=== PATIENT | female | born 1970 | race Caucasian/White ===

== ENCOUNTER 2018-11-29 00:40 | Emergency (ER) | payer OTHER, MEDICAID ==
[2018-11-29] MEDS ORDERED: OXYCODONE-ACETAMINOPHEN 5-325 MG TABLET PO ONE (01:08)
--- NOTE | 2018-11-29 01:14 | ER Document Report ---
ED GI/ - General Chief Complaint: Flank Pain Stated Complaint: FLANK PAIN Time Seen by Provider: 11/29/18 00:52 Primary Care Provider: DYLAN CRAIG MD [Primary Care Provider] - Follow up as needed Notes: This is a 48-year-old female patient lives in a long-term due to recent stroke to the emergency department complaining of right flank pain radiating down into the right lower quadrant. Patient states that she has a history of medullary sponge kidney. Had a stroke in May 2018. Had a carotid endarter ectomy with stent placed a few years prior to that she thinks. Does not know her lipid panel. Was seen here a few days ago and continues to have pain in the right flank and right lower quadrant area. Comes and goes. Had a CT performed on the when she was seen in the ER which showed that she had kidney stones. She thinks that she is on antibiotics as well. TRAVEL OUTSIDE OF THE [place] IN LAST 30 DAYS: No - HPI Patient complains to provider of: Abdominal pain, Flank pain Onset: Yesterday Timing/Duration: Gradual, Worse Quality of pain: Stabbing, Throbbing Severity at maximum: Moderate Severity in ED: Moderate Pain Level: 3 Location: RLQ, Right flank - Related Data Allergies/Adverse Reactions: Contrast Dye Allergy (Uncoded 11/26/18 10:52) Past Medical History - General Information source: Patient - Social History Smoking Status: Former Smoker Frequency of alcohol use: None Drug Abuse: None Lives with: Retirement Family History: Reviewed & Not Pertinent - Past Medical History Cardiac Medical History: Reports: Hx Hypercholesterolemia, Hx Hypertension Neurological Medical History: Reports: Hx Cerebrovascular Accident Renal/ Medical History: Reports: Hx Kidney Stones. Denies: Hx Peritoneal Dialysis - Immunizations Immunizations up to date: Yes Review of Systems - Review of Systems Notes: Constitutional: denies: Chills, Diaphoresis, Fever, Malaise, Weakness EENT: denies: Eye discharge, Blurred vision, Tearing, Double vision, Nose congestion, Nose discharge, Throat swelling, Mouth pain Cardiovascular: denies: Palpitations, Heart racing, Orthopnea, Dyspnea, Chest pain Respiratory: denies: Cough, Hurts to breathe, Wheezing, Shortness of breath Gastrointestinal: denies: Diarrhea, Nausea, Vomiting, Black stools, bright red blood in stool. +Abdominal pain, Genitourinary: denies: Burning, Dysuria, Discharge, Frequency, +Flank pain, - Hematuria Musculoskeletal: denies: Joint pain, Joint swelling, Muscle pain, Muscle stiffness, back pain Hematologic/Lymphatic: denies: Anemia, Easy bleeding, Easy bruising, Blood clots Neurological/Psychological: denies: Confusion, Dementia, Depression, Loss of consciousness Skin: No lesions, no masses, no skin breakdown, no abscesses Physical Exam - Vital signs Vitals: Temp Pulse Resp BP Pulse Ox 98.5 F 72 16 155/60 H 94 11/29/18 00:45 11/29/18 00:45 11/29/18 00:45 11/29/18 00:45 11/29/18 00:45 Interpretation: Normal - General General appearance: Appears well, Alert - HEENT Head: Normocephalic, Atraumatic Eyes: Normal Pupils: PERRL - Respiratory Respiratory status: No respiratory distress Chest status: Nontender Breath sounds: Normal Chest palpation: Normal - Cardiovascular Rhythm: Regular Heart sounds: Normal auscultation Murmur: No - Abdominal Inspection: Normal Distension: No distension Bowel sounds: Normal Tenderness: Nontender Organomegaly: No organomegaly - Back Back: Normal, Nontender - Extremities General upper extremity: Normal inspection, Nontender, Normal color, Normal ROM, Normal temperature General lower extremity: Normal inspection, Nontender, Normal color, Normal ROM, Normal temperature, Normal weight bearing. No: Giovanni's sign - Neurological Neuro grossly intact: Yes Cognition: Normal Orientation: AAOx4 [place] Coma Scale Eye Opening: Spontaneous Abby Coma Scale Verbal: Oriented [place] Coma Scale Motor: Obeys Commands Abby Coma Scale Total: 15 Speech: Normal Motor strength normal: LUE, RUE, LLE, RLE Sensory: Normal - Psychological Associated symptoms: Normal affect, Normal mood - Skin Skin Temperature: Warm Skin Moisture: Dry Skin Color: Normal, Other - No signs of shingles. No rash of the right flank or right lower abdomen area. Course - Re-evaluation Re-evalutation: 11/29/18 03:28 Laboratory 11/29/18 11/29/18 11/29/18 01:31 01:31 01:40 WBC 8.6 RBC 3.35 L Hgb 10.4 L Hct 29.8 L MCV 89 MCH 31.1 MCHC 34.8 RDW 14.4 H Plt Count 256 Seg Neutrophils % 60.9 Lymphocytes % 28.9 Monocytes % 7.6 Eosinophils % 2.0 Basophils % 0.6 Absolute Neutrophils 5.2 Absolute Lymphocytes 2.5 Absolute Monocytes 0.6 Absolute Eosinophils 0.2 Absolute Basophils 0.0 PT INR APTT Sodium 140.2 Potassium 4.1 Chloride 101 Carbon Dioxide 33 H Anion Gap 6 BUN 16 Creatinine 0.98 Est GFR ( Amer) > 60 Est GFR (Non-Af Amer) > 60 Glucose 111 H Calcium 9.5 Total Bilirubin 0.3 Direct Bilirubin 0.2 Neonat Total Bilirubin Not Reportable Neonat Direct Bilirubin Not Reportable Neonat Indirect Bili Not Reportable AST 13 L ALT 23 Alkaline Phosphatase 72 Total Protein 6.3 Albumin 3.7 Triglycerides 159 H Cholesterol 142.84 LDL Cholesterol Direct 73 VLDL Cholesterol 31.8 H HDL Cholesterol 52 Urine Color YELLOW Urine Appearance CLEAR Urine pH 6.0 Ur Specific [place] 1.010 Urine Protein NEGATIVE Urine Glucose (UA) NEGATIVE Urine Ketones NEGATIVE Urine Blood NEGATIVE Urine Nitrite NEGATIVE Urine Bilirubin NEGATIVE Urine Urobilinogen NEGATIVE Ur Leukocyte Esterase MODERATE H Urine WBC (Auto) 10 U Hyaline Cast (Auto) 1 Squamous Epi Cells Auto 1 Urine Mucus (Auto) RARE Urine Ascorbic Acid NEGATIVE 11/29/18 01:54 WBC RBC Hgb Hct MCV MCH MCHC RDW Plt Count Seg Neutrophils % Lymphocytes % Monocytes % Eosinophils % Basophils % Absolute Neutrophils Absolute Lymphocytes Absolute Monocytes Absolute Eosinophils Absolute Basophils PT 13.0 INR 0.94 APTT 31.1 Sodium Potassium Chloride Carbon Dioxide Anion Gap BUN Creatinine Est GFR ( Amer) Est GFR (Non-Af Amer) Glucose Calcium Total Bilirubin Direct Bilirubin Neonat Total Bilirubin Neonat Direct Bilirubin Neonat Indirect Bili AST ALT Alkaline Phosphatase Total Protein Albumin Triglycerides Cholesterol LDL Cholesterol Direct VLDL Cholesterol HDL Cholesterol Urine Color Urine Appearance Urine pH Ur Specific [place] Urine Protein Urine Glucose (UA) Urine Ketones Urine Blood Urine Nitrite Urine Bilirubin Urine Urobilinogen Ur Leukocyte Esterase Urine WBC (Auto) U Hyaline Cast (Auto) Squamous Epi Cells Auto Urine Mucus (Auto) Urine Ascorbic Acid Renal Ultrasound 11/29/18 02:07 IMPRESSION: 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 copyright 2010 [employer]- All Rights Reserved Patient is complaining of some mild flank pain. 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 She has no significant blood in her urine. She does have some leukocytes and WBCs and currently is on antibiotics. Does not appear septic. Afebrile. Normal vital signs. Ultrasound not show any hydronephrosis so concerned based on the fact that she does not have any hydro-that this is pain caused from a kidney stone. There is no blood in your urine. At this time based on a review of her previous CT scans there is a large amount of plaque noted in her iliacs and aorta. She has known vascular disease. I am going to do an IV contrasted CT scan. There is a reported allergy to IV dye so treating her with Benadryl at this time. Lactic acid has been ordered. 11/29/18 03:56 11/29/18 04:33 CT scan of the abdomen pelvis with IV contrast does not reveal any significant pathology. As noted on previous CT scan with out contrast there is significant atherosclerotic disease. The left iliac demonstrates stenosis greater than the right so unlikely this is the cause of her pain however patient will need to be seen as an outpatient by a vascular surgeon as she more than likely will require some sort of intervention in her near future. I did add on a homocystine and lipoprotein a as this can oftentimes be a missed treatable because of severe atherosclerotic disease in a patient with a fairly unremarkable lipid panel. Patient realizes that these results will take several weeks to return. I have given her follow-up information for vascular surgery that she will need to schedule. She has outpatient care at this time as she is currently in a rehab facility. I am recommending that she continue with her antibiotics. Will discharge at this time in stable condition. 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 copyright 2010 [employer]- All Rights Reserved Abdomen/Pelvis CT 11/29/18 03:35 IMPRESSION: Hyperdensities within the bilateral renal medulla, likely due to medullary nephrocalcinosis with bilateral nonobstructing stones and bilateral cysts. Large amount of stool within the distended rectum. Severe stenosis of the bilateral common iliac arteries, left greater than right secondary to atherosclerotic disease. TECHNICAL DOCUMENTATION: Quality ID # 436: Final reports with documentation of one or more dose reduction techniques (e.g., Automated exposure control, adjustment of the mA and/or kV according to patient size, use of iterative reconstruction technique) copyright 2011 [employer]- All Rights Reserved - Vital Signs Vital signs: Temp Pulse Resp BP Pulse Ox 98.5 F 72 16 155/60 H 94 11/29/18 00:45 11/29/18 00:45 11/29/18 00:45 11/29/18 00:45 11/29/18 00:45 - Laboratory Result Diagrams: 11/29/18 01:31 11/29/18 01:31 Laboratory results interpreted by me: 11/29/18 11/29/18 11/29/18 01:31 01:31 01:40 RBC 3.35 L Hgb 10.4 L Hct 29.8 L RDW 14.4 H Carbon Dioxide 33 H Glucose 111 H AST 13 L Triglycerides 159 H VLDL Cholesterol 31.8 H Ur Leukocyte Esterase MODERATE H Discharge - Discharge Clinical Impression: Right flank pain, Atherosclerosis of both iliac arteries Condition: Good Disposition: HOME, SELF-CARE Instructions: Flank Pain ([facility]), Toradol Injection ([facility]) Additional Instructions: Please follow-up with your primary care doctor for further evaluation of this pain. Continue with your antibiotics. Of note you have a large amount of plaque in your arteries. There is always a possibility that this could be causing some of your pain. I have given you a follow-up information and referral for vascular surgeon. I am quite certain that you need to be evaluated by vascular surgeon sooner or later. In the event that your pain is getting worse please do not hesitate to return for any worsening symptoms or concerns. Referrals: DYLAN CRAIG MD [Primary Care Provider] - Follow up as needed EVENS PRESSLEY MD [NO LOCAL MD] - Follow up as needed STANLEY ORTIZ MD [ACTIVE STAFF] - Follow up as needed
[2018-11-29] MEDS ORDERED: KETOROLAC TROMETHAMINE INJ/PF 30 MG/1 ML SDV IV ONE (01:32)
[2018-11-29 01:40] LABS: ABSOLUTE EOSINOPHILS # (AUTO) 0.2 10^3/uL (0.0-0.6); ABSOLUTE LYMPHOCYTES (AUTO) 2.5 10^3/uL (0.5-4.7); ABSOLUTE MONOCYTES (AUTO) 0.6 10^3/uL (0.1-1.4); ABSOLUTE NEUT (AUTO) 5.2 10^3/uL (1.7-8.2); BASOPHILS % (AUTO) 0.6 % (0-2); HEMATOCRIT 29.8 % (36.0-47.0); HEMOGLOBIN 10.4 g/dL (12.0-15.5); LYMPHOCYTES % (AUTO) 28.9 % (13-45); MEAN CORPUSCULAR HEMOGLOBIN 31.1 pg (27.0-33.4); MEAN CORPUSCULAR HGB CONC 34.8 g/dL (32.0-36.0); MEAN CORPUSCULAR VOLUME 89 fl (80-97); MONOCYTES % (AUTO) 7.6 % (3-13); PLATELET COUNT 256 10^3/uL (150-450); RED BLOOD COUNT 3.35 10^6/uL (3.72-5.28); RED CELL DISTRIBUTION WIDTH 14.4 % (11.5-14.0); SEGMENTED NEUTROPHILS % (AUTO) 60.9 % (42-78); TOTAL CELLS COUNTED % (AUTO) 100 %; WHITE BLOOD COUNT 8.6 10^3/uL (4.0-10.5)
[2018-11-29 01:55] LABS: ALANINE AMINOTRANSFERASE 23 U/L (9-52); ALBUMIN 3.7 g/dL (3.5-5.0); ALKALINE PHOSPHATASE 72 U/L (38-126); ANION GAP 6 (5-19); ASPARTATE AMINO TRANSFERASE 13 U/L (14-36); BILIRUBIN,DIRECT 0.2 mg/dL (0.0-0.4); BILIRUBIN,TOTAL 0.3 mg/dL (0.2-1.3); BLOOD UREA NITROGEN 16 mg/dL (7-20); CALCIUM 9.5 mg/dL (8.4-10.2); CARBON DIOXIDE 33 mmol/L (22-30); CHLORIDE 101 mmol/L (98-107); CHOLESTEROL 142.84 mg/dL (0-200); GLUCOSE 111 mg/dL (75-110); POTASSIUM 4.1 mmol/L (3.6-5.0); SODIUM 140.2 mmol/L (137-145); TOTAL PROTEIN 6.3 g/dL (6.3-8.2); TRIGLYCERIDES 159 mg/dL (<150)
[2018-11-29 02:06] LABS: INTERNATIONAL RATION (INR) 0.94
[2018-11-29 02:07] LABS: PARTIAL THROMBOPLASTIN TIME 31.1 SEC (23.5-35.8)
[2018-11-29 02:08] LABS: DIRECT LDL 73 mg/dL (<100)
[2018-11-29] MEDS ORDERED: TAMSULOSIN HCL 0.4 MG CAP.SR.24H PO ONE (02:08)
[2018-11-29] MEDS ORDERED: NORMAL SALINE 1000 ML 1,000 ML IV ONE ×2 (02:08→03:35)
[2018-11-29 02:11] LABS: VLDL CHOLESTEROL 31.8 mg/dL (10-31)
[2018-11-29] MEDS ORDERED: KETOROLAC TROMETHAMINE INJ/PF 30 MG/1 ML SDV IM ONE (02:11)
[2018-11-29 02:14] LABS: APPEARANCE,URINE CLEAR; BILIRUBIN,URINE NEGATIVE (NEGATIVE); COLOR,URINE YELLOW; GLUCOSE, URINE NEGATIVE (NEGATIVE); KETONES,URINE NEGATIVE (NEGATIVE); LEUKOCYTE ESTERASE,URINE MODERATE (NEGATIVE); NITRITE,URINE NEGATIVE (NEGATIVE); PROTEIN,URINE NEGATIVE (NEGATIVE); UROBILINOGEN,URINE NEGATIVE mg/dL (<2.0)
--- NOTE | 2018-11-29 03:17 | RADIOLOGY REPORT (SQ) ---
EXAM DESCRIPTION: US RETROPERITONEUM LIMITED COMPLETED DATE/TME: 11/29/2018 02:07 CLINICAL HISTORY: 48 years, Female, worsening right flank pain COMPARISON: CT dated 11/26/2018 TECHNIQUE: Grayscale and color images of the retroperitoneum LIMITATIONS: None. FINDINGS: Both kidneys are normal in size and shape. The bilateral renal medulla appear hyperechoic correlating to the hyperdensity seen on the prior CT. The right kidney measures 9.8 x 5.4 x 5.2 cm. Multiple renal stones are noted. There are also multiple cysts, the largest of which measures 2.2 x 2.1 x 1.6 cm. The left kidney measures 10.7 x 5.0 x 6.0 cm. Multiple stones are noted. There are multiple renal cysts, the largest of which measures 2.0 x 1.9 x 1.8 cm. No hydronephrosis is seen bilaterally. No perirenal fluid collections. The visualized portions of the urinary bladder appear unremarkable. 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 copyright 2010 [employer]- All Rights Reserved
[2018-11-29] MEDS ORDERED: HYDROMORPHONE HCL INJ/PF 2 MG/ML AMPULE IM ONE (03:29)
[2018-11-29] MEDS ORDERED: DIPHENHYDRAMINE HCL 50 MG/ML VIAL IV ONE (03:36)
[2018-11-29] MEDS ORDERED: LACTULOSE SYRUP 20 GM/30 ML UDCUP PO ONE (04:18)
--- NOTE | 2018-11-29 04:29 | RADIOLOGY REPORT (SQ) ---
EXAM DESCRIPTION: CT ABDOMEN PELVIS WITH IV CONTRAST COMPLETED DATE/TME: 11/29/2018 03:35 CLINICAL HISTORY: 48 years, Female, right flank pain COMPARISON: 11/26/2018 TECHNIQUE: Axial CT images of the abdomen and pelvis were obtained after the administration of IV contrast. Images stored on PACS. All CT scanners at this facility use dose modulation, iterative reconstruction, and/or weight based dosing when appropriate to reduce radiation dose to as low as reasonably achievable (ALARA). [facility]: Dose Right [facility]: CareDose [facility]: Dose Right [facility]: Teradose 4D [facility]: [employer] LIMITATIONS: None. FINDINGS: Lung bases are clear. The liver, gallbladder, pancreas, spleen, and adrenal glands are unremarkable. Both kidneys demonstrate hyperdensities within the renal medulla, right greater than left with bilateral nonobstructing stones and bilateral renal cysts. There is no intraperitoneal free air. There is a mild amount of free fluid. There are atherosclerotic calcifications of the abdominal aorta and iliac branches. There is severe stenosis of the bilateral common iliac arteries, left worse than right. There is no lymphadenopathy. The stomach, small bowel appear unremarkable. The appendix is normal. There is a moderate amount of stool within the colon. There is a large amount of stool within the rectum which is distended. The urinary bladder and uterus appear unremarkable. There are no lytic or blastic bone lesions. IMPRESSION: Hyperdensities within the bilateral renal medulla, likely due to medullary nephrocalcinosis with bilateral nonobstructing stones and bilateral cysts. Large amount of stool within the distended rectum. Severe stenosis of the bilateral common iliac arteries, left greater than right secondary to atherosclerotic disease. TECHNICAL DOCUMENTATION: Quality ID # 436: Final reports with documentation of one or more dose reduction techniques (e.g., Automated exposure control, adjustment of the mA and/or kV according to patient size, use of iterative reconstruction technique) copyright 2010 [email or web address]- All Rights Reserved
[2018-11-29 06:13] VITALS: BP 151/79
== END 2018-11-29 05:55 | disposition home or self-care (01) ==
LOC: ER 00:40
DX: I70.208 Unspecified atherosclerosis of native arteries of extremities, other extremity (principal); R10.9 Unspecified abdominal pain; R10.31 Right lower quadrant pain; Z98.890 Other specified postprocedural states; I10 Essential (primary) hypertension; Z87.891 Personal history of nicotine dependence
CPT/HCPCS: 99284; 96372; 96361; 96374; 36415; 83605; 85025; 85610; 85730; 80053; 81001; 83695; 83090; 80061; 76775; 74177; J1200; J1885; J1170; J7030

== ENCOUNTER 2018-12-23 16:11 | Emergency (ER) | payer BC, MEDICAID, OTHER ==
[2018-12-23 18:31] LABS: ABSOLUTE BASOPHILS # (AUTO) 0.1 10^3/uL (0.0-0.2); ABSOLUTE EOSINOPHILS # (AUTO) 0.2 10^3/uL (0.0-0.6); ABSOLUTE LYMPHOCYTES (AUTO) 2.3 10^3/uL (0.5-4.7); ABSOLUTE MONOCYTES (AUTO) 0.6 10^3/uL (0.1-1.4); ABSOLUTE NEUT (AUTO) 4.3 10^3/uL (1.7-8.2); BASOPHILS % (AUTO) 0.7 % (0-2); EOSINOPHILS % (AUTO) 2.2 % (0-6); HEMATOCRIT 33.7 % (36.0-47.0); HEMOGLOBIN 11.3 g/dL (12.0-15.5); LYMPHOCYTES % (AUTO) 30.9 % (13-45); MEAN CORPUSCULAR HEMOGLOBIN 30.5 pg (27.0-33.4); MEAN CORPUSCULAR HGB CONC 33.7 g/dL (32.0-36.0); MEAN CORPUSCULAR VOLUME 90 fl (80-97); MONOCYTES % (AUTO) 8.6 % (3-13); PLATELET COUNT 307 10^3/uL (150-450); RED BLOOD COUNT 3.72 10^6/uL (3.72-5.28); RED CELL DISTRIBUTION WIDTH 13.3 % (11.5-14.0); SEGMENTED NEUTROPHILS % (AUTO) 57.6 % (42-78); TOTAL CELLS COUNTED % (AUTO) 100 %; WHITE BLOOD COUNT 7.4 10^3/uL (4.0-10.5)
[2018-12-23 18:39] LABS: PARTIAL THROMBOPLASTIN TIME 33.1 SEC (23.5-35.8); PROTHROMBIN TIME 13.2 SEC (11.4-15.4)
[2018-12-23 18:55] LABS: ALANINE AMINOTRANSFERASE 19 U/L (9-52); ALBUMIN 3.9 g/dL (3.5-5.0); ALKALINE PHOSPHATASE 78 U/L (38-126); ANION GAP 8 (5-19); ASPARTATE AMINO TRANSFERASE 17 U/L (14-36); BILIRUBIN,DIRECT 0.2 mg/dL (0.0-0.4); BILIRUBIN,TOTAL 0.2 mg/dL (0.2-1.3); BLOOD UREA NITROGEN 28 mg/dL (7-20); CALCIUM 9.7 mg/dL (8.4-10.2); CARBON DIOXIDE 30 mmol/L (22-30); CHLORIDE 102 mmol/L (98-107); GLUCOSE 99 mg/dL (75-110); SODIUM 140.1 mmol/L (137-145); TOTAL PROTEIN 6.5 g/dL (6.3-8.2)
--- NOTE | 2018-12-23 19:18 | ER Document Report ---
ED Head/Face/Scalp Injury - General Chief Complaint: Facial Injury Stated Complaint: HEMORRAGE Time Seen by Provider: 12/23/18 18:26 Primary Care Provider: EVENS LANDEROS MD [Primary Care Provider] - Follow up as needed Mode of Arrival: Medic Information source: Patient TRAVEL OUTSIDE OF THE [place] IN LAST 30 DAYS: No - HPI Patient complains to provider of: Other - abrasion Injury to: Face Occurred: Just prior to arrival Where: Half-Way Timing: Still present Context: Other - Patient said that she describes a blister on her face and she is starting the started bleeding from the open abrasion. Loss consciousness: No loss of consciousness - Related Data Allergies/Adverse Reactions: Contrast Dye Allergy (Uncoded 11/26/18 10:52) Past Medical History - General Information source: Patient - Social History Smoking Status: Unknown if Ever Smoked Family History: Reviewed & Not Pertinent Patient has suicidal ideation: No Patient has homicidal ideation: No - Past Medical History Cardiac Medical History: Reports: Hx Hypercholesterolemia, Hx Hypertension Neurological Medical History: Reports: Hx Cerebrovascular Accident Renal/ Medical History: Reports: Hx Kidney Stones. Denies: Hx Peritoneal Dialysis - Immunizations Immunizations up to date: Yes Review of Systems - Review of Systems Constitutional: No symptoms reported EENT: Other - Left facial bleeding. Cardiovascular: No symptoms reported Respiratory: No symptoms reported Gastrointestinal: No symptoms reported Genitourinary: No symptoms reported Female Genitourinary: No symptoms reported Musculoskeletal: No symptoms reported Skin: No symptoms reported Hematologic/Lymphatic: No symptoms reported Neurological/Psychological: No symptoms reported -: Yes All other systems reviewed and negative Physical Exam - Vital signs Vitals: Pulse Resp BP Pulse Ox 65 15 116/46 L 98 12/23/18 16:26 12/23/18 16:26 12/23/18 16:26 12/23/18 16:26 Interpretation: Normal - General General appearance: Appears well, Alert In distress: None - HEENT Head: Normocephalic, Atraumatic, Other - Left facial abrasion on the left cheek, with bright red blood oozing from the wound. Eyes: Normal Conjunctiva: Normal Cornea: Normal Extraocular movements intact: Yes Eyelashes: Normal Pupils: PERRL Pharynx: Normal - Respiratory Respiratory status: No respiratory distress Chest status: Nontender Breath sounds: Normal Chest palpation: Normal - Cardiovascular Rhythm: Regular Heart sounds: Normal auscultation Murmur: No - Abdominal Inspection: Normal Distension: No distension Bowel sounds: Normal Tenderness: Nontender Organomegaly: No organomegaly - Back Back: Normal, Nontender - Extremities General upper extremity: Normal inspection, Nontender, Normal color, Normal ROM, Normal temperature General lower extremity: Normal inspection, Nontender, Normal color, Normal ROM, Normal temperature, Normal weight bearing. No: Giovanni's sign - Neurological Neuro grossly intact: Yes Cognition: Normal Orientation: AAOx4 Abby Coma Scale Eye Opening: Spontaneous Abby Coma Scale Verbal: Oriented Abby Coma Scale Motor: Obeys Commands Abby Coma Scale Total: 15 Speech: Normal Motor strength normal: LUE, RUE, LLE, RLE Sensory: Normal - Psychological Associated symptoms: Normal affect, Normal mood - Skin Skin Temperature: Warm Skin Moisture: Dry Skin Color: Normal Course - Re-evaluation Re-evalutation: 12/24/18 00:26 Patient was advised to leave the Surgicel on her left cheek for the next 24 hours. She is to return to the emergency room if the bleeding continues. - Vital Signs Vital signs: Temp Pulse Resp BP Pulse Ox 97.7 F 63 18 141/50 H 98 12/23/18 21:04 12/23/18 21:04 12/23/18 21:04 12/23/18 21:04 12/23/18 21:04 - Laboratory Result Diagrams: 12/23/18 18:20 12/23/18 18:20 Laboratory results interpreted by me: 12/23/18 12/23/18 18:20 18:20 Hgb 11.3 L Hct 33.7 L BUN 28 H Est GFR ( Amer) 58 L Est GFR (Non-Af Amer) 48 L - Transfer of Care Notes: 12/23/18 21:41 The surgical list business continuity specialist Dr. Christie was consulted and he came to the ER and evaluated patient. He recommends discharging patient home with Surgicel since the bleeding has stopped. Discharge - Discharge Clinical Impression: Bleeding Abrasion of face Qualifiers: Encounter type: initial encounter Qualified Code(s): S00.81XA - Abrasion of other part of head, initial encounter Condition: Stable Disposition: HOME, SELF-CARE Instructions: Abrasions of the Face ([facility]) Additional Instructions: Please follow-up with your primary doctor on Tuesday. Leave the Surgicel on your face for a day without removing it. Return to the emergency room if your condition worsens. Referrals: EVENS LANDEROS MD [Primary Care Provider] - Follow up as needed
[2018-12-23] MEDS ORDERED: LIDOCAINE 1% INJ-PF (10 MG/ML) 30 ML SDV INJ ONE (21:00)
[2018-12-23] MEDS ORDERED: NORMAL SALINE 500 ML IV ONE (21:42)
[2018-12-24 00:29] VITALS: BP 148/58
== END 2018-12-24 01:56 | disposition home or self-care (01) ==
LOC: ER 16:11
DX: S00.81XA Abrasion of other part of head, initial encounter (principal); R58 Hemorrhage, not elsewhere classified; X58.XXXA Exposure to other specified factors, initial encounter; I10 Essential (primary) hypertension
CPT/HCPCS: 36415; 80053; 85025; 85610; 85730; 99284

== ENCOUNTER 2019-04-09 10:55 | Emergency (ER) | payer MEDICAID, OTHER ==
[2019-04-09] MEDS ORDERED: OXYCODONE HCL IR 5 MG TABLET PO ONE (13:32)
[2019-04-09] MEDS ORDERED: GABAPENTIN 300 MG CAPSULE PO ONE (13:32)
[2019-04-09] MEDS ORDERED: ALPRAZOLAM 0.25 MG TABLET PO ONE (13:33)
--- NOTE | 2019-04-09 13:44 | ER Document Report ---
ED General - General Chief Complaint: Anxiety Stated Complaint: POSSIBLE ANXIETY Time Seen by Provider: 04/09/19 13:12 Primary Care Provider: EVENS LANDEROS MD [Primary Care Provider] - Follow up in 1 week Mode of Arrival: Medic Information source: Patient, Emergency Med Personnel Notes: This 48-year-old female resident of [facility] w ith history of panic disorders, anxiety, PTSD and insomnia muscle spasms presents to the emergency department with report that she had a panic attack this morning. Reports she called and called for help but nobody came. She reports that finally simply came in she said she want to go to the hospital and they told her to undergo the hospital she can call herself. Patient reports she called 911 herself. Patient is requesting her medications she normally takes for her muscle spasms which include gabapentin oxycodone and Xanax. She denies other symptoms such as fever vomiting diarrhea. Denies suicide or homicide ideations. TRAVEL OUTSIDE OF THE [place] IN LAST 30 DAYS: No - HPI Onset: This morning Onset/Duration: Sudden Quality of pain: Achy Associated symptoms: None Exacerbated by: Denies Relieved by: Denies Similar symptoms previously: Yes Recently seen / treated by doctor: No - Related Data Allergies/Adverse Reactions: Contrast Dye Allergy (Uncoded 04/09/19 11:15) Home Medications: Xanax Past Medical History - General Information source: Patient, Emergency Med Personnel, Outside Facility Records - Social History Smoking Status: Never Smoker Family History: Reviewed & Not Pertinent Patient has suicidal ideation: No Patient has homicidal ideation: No - Past Medical History Cardiac Medical History: Reports: Hx Hypercholesterolemia, Hx Hypertension Neurological Medical History: Reports: Hx Cerebrovascular Accident Renal/ Medical History: Reports: Hx Kidney Stones. Denies: Hx Peritoneal Dialysis - Immunizations Immunizations up to date: Yes Review of Systems - Review of Systems Notes: Review HPI for review of systems., All other systems negative Physical Exam - Vital signs Vitals: Temp Pulse Resp BP Pulse Ox 98.8 F 62 16 120/78 93 04/09/19 11:14 04/09/19 11:14 04/09/19 11:14 04/09/19 11:14 04/09/19 11:14 - General General appearance: Appears well, Alert, Anxious In distress: None - HEENT Head: Normocephalic Eyes: Normal Conjunctiva: Normal Neck: Normal. No: Lymphadenopathy - Respiratory Respiratory status: No respiratory distress Chest status: Nontender Breath sounds: Normal Chest palpation: Normal - Cardiovascular Rhythm: Regular Heart sounds: Normal auscultation Murmur: No - Abdominal Inspection: Normal Distension: No distension Tenderness: Nontender - Neurological Neuro grossly intact: Yes Cognition: Normal Orientation: AAOx4 Abby Coma Scale Eye Opening: Spontaneous [place] Coma Scale Verbal: Oriented Abby Coma Scale Motor: Obeys Commands [place] Coma Scale Total: 15 - Psychological Associated symptoms: Normal affect, Normal mood - Skin Skin Temperature: Warm Skin Moisture: Dry Skin Color: Normal Course - Re-evaluation Re-evalutation: 04/09/19 14:34 This 48-year-old female presents to the emergency department via EMS from [facility]. Patient is a resident of [facility] due to history of stroke and she is supposed to be getting rehab so she can return home. Patient reports that she called 911 herself because nobody would help with this morning. I contacted Erica FITZGERALD at [facility]. She reports that the patient was assisted with her a.m. meds this morning and then after breakfast her feet kept hitting the bed rail. She reports that is what starts the patient's panic attacks. She called out for Xanax. The nurse was with another patient and did not move fast enough for the patient so by the time she got there with the Xanax the patient declined it and wanted to go to hospital. No other c/o such as fever/vomiting/diarrhea. I informed Erica that I was treating her with g abapentin Xanax and her oxycodone and sending patient home back to [facility]. She agrees with plan. Patient was instructed on the same. Agrees with plan. 04/09/19 15:20 patient comfortable upon discharge Dictation of this chart was performed using voice recognition software; therefore, there may be some unintended grammatical errors. - Vital Signs Vital signs: Temp Pulse Resp BP Pulse Ox 98.2 F 58 L 16 136/41 H 96 04/09/19 15:22 04/09/19 15:22 04/09/19 15:22 04/09/19 15:22 04/09/19 15:22 Discharge - Discharge Clinical Impression: Anxiety, Muscle spasm Condition: Stable Disposition: HOME, SELF-CARE Instructions: Anxiety ([facility]), Panic Attack ([facility]) Additional Instructions: *You have been evaluated for anxiety, panic attack, muscle spasms *Follow up with your primary care provider within one week *Take your medications as prescribed *Return to ED for worsening condition, changes, needs Referrals: EVENS LANDEROS MD [Primary Care Provider] - Follow up in 1 week
[2019-04-09 15:23] VITALS: BP 136/41
== END 2019-04-09 15:22 | disposition home or self-care (01) ==
LOC: ER 10:55
DX: F41.9 Anxiety disorder, unspecified (principal); F41.0 Panic disorder [episodic paroxysmal anxiety]; M62.838 Other muscle spasm; I10 Essential (primary) hypertension; Z79.899 Other long term (current) drug therapy; Z79.891 Long term (current) use of opiate analgesic; Z91.041 Radiographic dye allergy status
CPT/HCPCS: 99284; J3490 ×3

== ENCOUNTER 2019-08-30 08:34 | Emergency (ER) | payer MEDICAID ==
[2019-08-30 08:41] VITALS: BP 145/62
--- NOTE | 2019-08-30 09:33 | ER Document Report ---
Entered by ELIJAH LORENZ SCRIBE 08/30/19 0856 Acting as scribe for:RACHEL SHER MD ED Fall - General Chief Complaint: Fall Injury Stated Complaint: FALL HIP PAIN Time Seen by Provider: 08/30/19 08:53 Primary Care Provider: DYLAN CRAIG MD [Primary Care Provider] - Follow up as needed Mode of Arrival: Ambulatory Information source: Patient Notes: This 49-year-old female patient presents today via EMS from [facility] with complaints of a fall that occurred just prior to arrival. Patient states that she "heard people in her house so she got out of bed to go see who it was" when she fell. Nursing staff was informed that this patient has been known to make herself fall out of the bed on purpose when she was not getting what she wanted at the skilled nursing. Patient complains of right hip and lower extremity pain. Patient is alert but confused which is baseline according to [facility] records. She also complains of right shoulder pain, but states she knows it is not broken. She complains of back pain which she states is a chronic problem and is unchanged from her baseline. Patient also reports she was supposed to have surgery on her lower extremities yesterday, she was supposed to have stents placed in both legs for her poor circulation. TRAVEL OUTSIDE OF THE [place] IN LAST 30 DAYS: No - Related data Allergies/Adverse Reactions: Contrast Dye Allergy (Uncoded 04/09/19 11:15) Past Medical History - General Information source: Patient - Social History Smoking Status: Unknown if Ever Smoked Cigarette use (# per day): No Frequency of alcohol use: None Drug Abuse: None Lives with: Family Family History: Reviewed & Not Pertinent Patient has suicidal ideation: No Patient has homicidal ideation: No - Past Medical History Cardiac Medical History: Reports: Hx Hypercholesterolemia, Hx Hypertension, Hx Peripheral Vascular Disease Neurological Medical History: Reports: Hx Cerebrovascular Accident Renal/ Medical History: Reports: Hx Kidney Stones GI Medical History: Reports: Hx Gastroesophageal Reflux Disease Psychiatric Medical History: Reports: Hx Depression Past Surgical History: Reports: Hx Carotid Endarterectomy, Hx Kidney (Renal Surgery) - Lithotripsy - Immunizations Immunizations up to date: Yes Review of Systems - Review of Systems Constitutional: See HPI, Other - fall EENT: No symptoms reported Cardiovascular: No symptoms reported Respiratory: No symptoms reported Gastrointestinal: No symptoms reported Genitourinary: No symptoms reported Female Genitourinary: No symptoms reported Musculoskeletal: See HPI, Other - RLE pain Skin: No symptoms reported Hematologic/Lymphatic: No symptoms reported Neurological/Psychological: No symptoms reported -: Yes All other systems reviewed and negative Physical Exam - Vital signs Vitals: Temp Pulse Resp BP Pulse Ox 98.5 F 77 18 145/62 H 99 08/30/19 08:34 08/30/19 08:34 08/30/19 08:34 08/30/19 08:34 08/30/19 08:34 - Notes Notes: Physical Exam: General: Alert but confused, appears significantly older than stated age. HEENT: Normocephalic. Atraumatic. PERRL. Extraocular movements intact. Oropharynx clear. Neck: Patient had a hard cervical collar on when first seen, this was removed. She denied having any neck pain. She did state the collar was making her right ear hurt. Supple. Non-tender. Kyphosis. Patient is able to turn her head to the right and left with no difficulty, she is will sit up forward to help with her exam and looks about without any complaint of neck discomfort. Respiratory: No respiratory distress. Clear and equal breath sounds bilaterally. Cardiovascular: Regular rate and rhythm. Abdominal: Normal Inspection. Non-tender. No distension. Normal Bowel Sounds. Back: No gross abnormalities. Minimal tenderness to palpate along the spinous processes of the lumbar and thoracic back. Extremities- Upper extremities: Right shoulder is minimally tender to palpate. Passive range of motion does not elicit pain. Lower extremities: Keeps leg crossed, very difficult to get them apart which appears chronic, right hip tenderness with palpation, no swelling,bruising, or abnormalities other than knee stiffness. Both feet are very cool to touch with some cyanosis on the plantar surface of the first toe on each foot. This is consistent with her history of severe peripheral vascular disease. Neurological: Alert but confused at baseline per [facility] history. Psychological: Normal affect. Normal Mood. Skin: Warm. Dry. Normal color. Course - Vital Signs Vital signs: Temp Pulse Resp BP Pulse Ox 98.5 F 77 18 145/62 H 99 08/30/19 08:34 08/30/19 08:34 08/30/19 08:34 08/30/19 08:34 03/19/20 08:34 - Diagnostic Test Radiology reviewed: Image reviewed - Right hip x-ray does not show acute fracture Discharge - Discharge Clinical Impression: Right hip pain Fall Qualifiers: Encounter type: initial encounter Qualified Code(s): W19.XXXA - Unspecified fall, initial encounter Right shoulder pain Qualifiers: Chronicity: unspecified Qualified Code(s): M25.511 - Pain in right shoulder Condition: Stable Disposition: HOME, SELF-CARE Additional Instructions: The x-ray of your hip today does not show an acute fracture. The physical exam of your right shoulder was unremarkable, your right knee and leg did not show evidence of injury. Continue your regular medications. Avoid weightbearing for the next few days until your hip feels better. Follow-up with your primary care provider if not improving or other problems develop. RETURN TO THE EMERGENCY ROOM IF ANY NEW OR WORSENING SYMPTOMS. Referrals: DYLAN CRAIG MD [Primary Care Provider] - Follow up as needed I personally performed the services described in the documentation, reviewed and edited the documentation which was dictated to the scribe in my presence, and it accurately records my words and actions.
--- NOTE | 2019-08-30 09:57 | RADIOLOGY REPORT (SQ) ---
EXAM DESCRIPTION: HIP RIGHT AP/LATERAL COMPLETED DATE/TIME: 08/30/2019 9:32 am REASON FOR STUDY: fell out of bed COMPARISON: None. NUMBER OF VIEWS: Two views. TECHNIQUE: AP pelvis and additional frog-leg view of the right hip. LIMITATIONS: None. FINDINGS: MINERALIZATION: Normal. RIGHT HIP: No fracture or dislocation. No worrisome bone lesions. LEFT HIP: No fracture or dislocation. No worrisome bone lesions. PUBIS AND ISCHIUM: No fracture. PELVIS: No fracture. SACRUM: No fracture or dislocation. No worrisome bone lesions. LOWER LUMBAR SPINE: No fracture or dislocation. No worrisome bone lesions. No significant disc disea se. SOFT TISSUES: No findings. OTHER: No other significant finding. IMPRESSION: NO RADIOGRAPHIC EVIDENCE OF ACUTE INJURY. TECHNICAL DOCUMENTATION: JOB ID: [id number] 2010 [employer]- All Rights Reserved Reading location - IP/workstation name: [email or web address]
== END 2019-08-30 10:10 | disposition home or self-care (01) ==
LOC: ER 08:34
DX: M25.551 Pain in right hip (principal); M25.511 Pain in right shoulder; W06.XXXA Fall from bed, initial encounter; Y93.89 Activity, other specified; Y92.122 Bedroom in nursing home as the place of occurrence of the external cause; M54.9 Dorsalgia, unspecified; R41.0 Disorientation, unspecified; I73.9 Peripheral vascular disease, unspecified; I10 Essential (primary) hypertension; Z91.041 Radiographic dye allergy status
CPT/HCPCS: 99283

== ENCOUNTER 2019-10-29 11:20 | Emergency (ER) | payer MEDICAID ==
[2019-10-29 11:47] LABS: ABSOLUTE EOSINOPHILS # (AUTO) 0.1 10^3/uL (0.0-0.6); ABSOLUTE MONOCYTES (AUTO) 0.4 10^3/uL (0.1-1.4); ABSOLUTE NEUT (AUTO) 7.9 10^3/uL (1.7-8.2); BASOPHILS % (AUTO) 0.2 % (0-2); EOSINOPHILS % (AUTO) 0.5 % (0-6); HEMOGLOBIN 13.7 g/dL (12.0-15.5); LYMPHOCYTES % (AUTO) 18.9 % (13-45); MEAN CORPUSCULAR HEMOGLOBIN 29.3 pg (27.0-33.4); MEAN CORPUSCULAR HGB CONC 33.5 g/dL (32.0-36.0); MEAN CORPUSCULAR VOLUME 88 fl (80-97); MONOCYTES % (AUTO) 3.6 % (3-13); PLATELET COUNT 301 10^3/uL (150-450); RED BLOOD COUNT 4.69 10^6/uL (3.72-5.28); RED CELL DISTRIBUTION WIDTH 14.5 % (11.5-14.0); SEGMENTED NEUTROPHILS % (AUTO) 76.8 % (42-78); TOTAL CELLS COUNTED % (AUTO) 100 %; WHITE BLOOD COUNT 10.3 10^3/uL (4.0-10.5)
[2019-10-29 12:09] LABS: ALBUMIN 4.3 g/dL (3.5-5.0); ALKALINE PHOSPHATASE 91 U/L (38-126); ANION GAP 5 (5-19); ASPARTATE AMINO TRANSFERASE 23 U/L (14-36); BILIRUBIN,TOTAL 0.3 mg/dL (0.2-1.3); BLOOD UREA NITROGEN 22 mg/dL (7-20); CALCIUM 9.7 mg/dL (8.4-10.2); CARBON DIOXIDE 35 mmol/L (22-30); CHLORIDE 99 mmol/L (98-107); CREATINE KINASE 46 U/L (30-135); GLUCOSE 86 mg/dL (75-110); TOTAL PROTEIN 7.5 g/dL (6.3-8.2)
--- NOTE | 2019-10-29 12:16 | ER Document Report ---
ED Dizziness/Weakness <KIMI REBOLLEDOKATELIN Zuñiga - Last Filed: 10/29/19 15:46> - General Mode of Arrival: Medic Information source: Outside Facility Records TRAVEL OUTSIDE OF THE [place] IN LAST 30 DAYS: No <ANGELO CHILEL - Last Filed: 10/30/19 06:11> - General Chief Complaint: General Weakness Stated Complaint: LETHARGIC Time Seen by Provider: 10/29/19 11:49 Primary Care Provider: DYLAN CRAIG MD [Primary Care Provider] - Follow up as needed Notes: 49-year-old woman history of CVA in the past, CAD, UTI, panic disorder, chronic pain, apparently has had a change in her normal baseline at the long-term care [facility] this morning. Nurse notes that prior to coming in she was not as responsive as usual and lower to have some left facial droop. She is a resident of the [facility], (facility has had positive coronavirus residents) patient is presently poorly responsive to verbal stimuli and afebrile. Apparently last known well was 9 AM this morning 10/29/2019. Patient is normally alert and responsive also converses and talks. Presently she is nonverbal and not responding to verbal stimuli. (ANGELO CHILEL) - Related Data Allergies/Adverse Reactions: Contrast Dye Allergy (Uncoded 04/09/19 11:15) Past Medical History - Social History Smoking Status: Unknown if Ever Smoked Family History: Reviewed & Not Pertinent - Past Medical History Cardiac Medical History: Reports: Hx Hypercholesterolemia, Hx Hypertension, Hx Peripheral Vascular Disease Neurological Medical History: Reports: Hx Cerebrovascular Accident Renal/ Medical History: Reports: Hx Kidney Stones. Denies: Hx Peritoneal Dial ysis GI Medical History: Reports: Hx Gastroesophageal Reflux Disease Psychiatric Medical History: Reports: Hx Depression Past Surgical History: Reports: Hx Carotid Endarterectomy, Hx Kidney (Renal Surgery) - Lithotripsy - Immunizations Immunizations up to date: Yes <ANGELO CHILEL - Last Filed: 10/30/19 06:11> Review of Systems - Review of Systems -: Yes ROS unobtainable due to patient's medical condition - Patient is nonverbal unable to respond to questions. <ANGELO CHILEL - Last Filed: 10/30/19 06:11> Physical Exam <ANGELO CHILEL - Last Filed: 10/30/19 06:11> - Vital signs Vitals: Temp Resp Pulse Ox 98.1 F 10 L 96 10/29/19 11:22 10/29/19 11:22 10/29/19 11:22 - Notes Notes: PHYSICAL EXAMINATION: Physical Exam: General: Poorly responsive 49-year-old female lying in bed HEENT: NC/AT, pupils equal round and reactive to light, no eye deviation, MM moist,nares clear, oropharynx clear, airway patent Neck: supple, no adenopathy, no masses. Good range of motion Lungs: clear, no wheezing, no rales no rhonchi CVS: Regular rate and rhythm no murmur gallop or rub Abdomen: Soft, active, nontender, no masses, no hepatosplenomegaly Ext: No edema, clubbing or cyanosis. Neuro: Poorly responsive and noted eye movements and unable to follow a neurologic exam. Contracture contracture in the lower extremities scissor crossing of the legs, left upper extremity contracture of the elbow, right upper extremity no resistance. Skin: Intact no open lesions, no rash (ANGELO CHILEL) Course - Laboratory Result Diagrams: 10/29/19 11:28 10/29/19 11:28 <DAKOTA REBOLLEDO - Last Filed: 10/29/19 15:46> - Laboratory Result Diagrams: 10/29/19 11:28 10/29/19 11:28 - Diagnostic Test Radiology reviewed: Image reviewed, Reports reviewed - CT head without contrast: There is a large right MCA distribution infarct predominantly posterior with a small amount of associated cortical hemorrhage or calcification. Evidence of acute stroke: Subacute right MCA/right PHARMACY ANALYST. <ANGELO CHILEL - Last Filed: 10/30/19 06:11> - Re-evaluation Re-evalutation: 10/29/19 15:46 Patient CARE turned over to dc awaiting transport. Transport is here. Patient is stable. She complains of some mild right leg pain, but otherwise is stable. Patient will be transferred to [facility] for further care. (DAKOTA REBOLLEDO) 10/29/19 12:59 Given the patient's chronic debilitated state as well as uncertainty of onset and a question of cortical hemorrhage on the CT scan makes this an unlikely candidate for TPA. Neurologist that [facility] was contacted, after review of the history and CT findings he suggests a acute on chronic stroke and a chronically debilitated long-term care patient, did not feel that code stroke or TPA intervention would be needed. She had recommended routine stroke care as an inpatient. 10/29/19 13:40 Dr. Harmon, hospitalist at [facility] as a separate patient in transfer to the stroke unit. Further history according to the fianc of the patient she has been having intermittent episodes of speech difficulty and confusion during the past week. He states that he had made the [facility] aware of these changes. 10/29/19 14:17 Was asked to come to the room to see the patient apparently she is now speaking without difficulty full sentences and moving the right upper extremity on command. She is alert, answering questions appropriately without difficulty. I am unsure of etiology for these transient neurologic findings associated with the CT scan results that we were given. Explained to the patient she is being transferred to [facility] and she is in agreement with that plan. 15:00 Because of concerns regarding coronavirus and because your residents at the facility who have been diagnosed a rapid coronavirus test is being performed prior to transport. The results of the tests was negative for COVID-19. (ANGELO CHILEL) - Vital Signs Vital signs: Temp Pulse Resp BP Pulse Ox 98.1 F 82 16 138/60 H 99 10/29/19 15:40 10/29/19 15:40 10/29/19 15:40 10/29/19 15:40 10/29/19 15:40 - Laboratory Laboratory results interpreted by me: 10/29/19 10/29/19 11:28 11:28 RDW 14.5 H Carbon Dioxide 35 H BUN 22 H Est GFR ( Amer) 57 L Est GFR (MDRD) Non-Af 47 L Critical Care Note - Critical Care Note Total time excluding time spent on procedures (mins): 60 - Critical care time spent obtaining history from patient or surrogate, discussions with consultants, development of treatment plan with patient or surrogate, evaluation of patient's response to treatment, examination of patient, ordering and performing treatments and interventions, ordering and review of laboratory studies, re- evaluation of patient's condition, ordering and review of radiographic studies and review of old charts <ANGELO CHILEL - Last Filed: 10/30/19 06:11> Discharge <DAKOTA REBOLLEDO - Last Filed: 10/29/19 15:46> <ANGELO CHILEL - Last Filed: 10/30/19 06:11> - Discharge Clinical Impression: Acute CVA (cerebrovascular accident) Condition: Fair Disposition: [facility] Referrals: DYLAN CRAIG MD [Primary Care Provider] - Follow up as needed
[2019-10-29 12:22] LABS: TROPONIN I < 0.012 ng/mL
--- NOTE | 2019-10-29 12:31 | RADIOLOGY REPORT (SQ) ---
EXAM DESCRIPTION: CT HEAD WITHOUT IMAGES COMPLETED DATE/TIME: 10/29/2019 12:05 pm REASON FOR STUDY: AMS; STROKE ALERT COMPARISON: None. TECHNIQUE: Axial images acquired through the brain without intravenous contrast. Images reviewed wi th bone, brain and subdural windows. Additional sagittal and coronal reconstructions were generated. Images stored on PACS. All CT scanners at this facility use dose modulation, iterative reconstruction, and/or weight based d osing when appropriate to reduce radiation dose to as low as reasonably achievable (ALARA). [facility]: Dose Right [facility]: CareDose [facility]: Dose Right [facility]: Teradose 4D [facility]: Smart [employer] RADIATION DOSE: mGy. LIMITATIONS: None. FINDINGS: VENTRICLES: Normal size and contour. CEREBRUM: There is a large area of decreased attenuation in distribution of the right middle cerebral artery posteriorly. There is small amount of associated cortical hemorrhage. Normal hurtado/ white mat ter differentiation on the left. CEREBELLUM: No masses. No hemorrhage. No alteration of density. No evidence for acute infarction. EXTRAAXIAL SPACES: No fluid collections. No masses. ORBITS AND GLOBE: No intra- or extraconal masses. Normal contour of globe without masses. CALVARIUM: No fracture. PARANASAL SINUSES: No fluid or mucosal thickening. SOFT TISSUES: No mass or hematoma. OTHER: No other significant finding. IMPRESSION: There is a large right MCA distribution infarction predominantly posterior with small am ount of associated cortical hemorrhage or calcification. EVIDENCE OF ACUTE STROKE: SUBACUTE RIGHT MCA./RIGHT DOLPHIN RESEARCHER COMMENT: Pertinent findings on the imaging study reported as a CRITICAL RESULT to ANGELO CHILEL MD at12:24 on 10/29/2019. Category of Critical Result: Stroke. Quality ID # [id number]: Final reports with documentation of one or more dose reduction techniques (e.g., Au tomated exposure control, adjustment of the mA and/or kV according to patient size, use of iterative reconstruction technique) TECHNICAL DOCUMENTATION: JOB ID: [id number] 2010 [employer]- All Rights Reserved Reading location - IP/workstation name: [email or web address]
[2019-10-29] MEDS ORDERED: ASPIRIN 300 MG SUPP, RECTAL PR ONE (13:43)
--- NOTE | 2019-10-29 14:06 | EKG REPORT ---
SEVERITY:- ABNORMAL ECG - LVH WITH SECONDARY REPOLARIZATION ABNORMALITY SINUS RHYTHM : Confirmed by: Mary Renner MD 29-Oct-2019 14:06:24
[2019-10-29 15:17] VITALS: BP 138/60
--- NOTE | 2019-10-30 08:12 | EKG REPORT ---
SEVERITY:- NORMAL ECG - SINUS RHYTHM : Confirmed by: Mary Renner MD 30-Oct-2019 08:12:25
== END 2019-10-29 15:45 | disposition short-term general hospital (02) ==
LOC: ER 11:20
DX: I63.9 Cerebral infarction, unspecified (principal); R53.1 Weakness; R53.83 Other fatigue; I25.10 Atherosclerotic heart disease of native coronary artery without angina pectoris; G89.29 Other chronic pain; I10 Essential (primary) hypertension; Z20.828 Contact with and (suspected) exposure to other viral communicable diseases
CPT/HCPCS: 93005; 99291; 36415; 82553; 82962; 82550; 85025; 87635; 80053; 84484; 70450; 93010; J3490